=== PATIENT | male | born 1980 | race Two or more races ===

== ENCOUNTER 2024-09-18 21:42 | Emergency (ER) | payer MEDICAID, SELFPAY ==
[2024-09-18 21:43] VITALS: BMI 25.0
--- NOTE | 2024-09-18 21:49 | EKG_ITS ---
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
--- NOTE | 2024-09-18 22:04 | EDNOTE_ITS ---
ED Chest Pain RME/HPI General Chief Complaint: Chest Pain Stated Complaint: CHEST PAIN, EVERYTHING HURTS Time Seen by Provider: 09/18/24 22:05 Arrival date/time: 09/18/24 21:42 RME / HPI RME / HPI narrative: This section includes all my notes and documentations, including HPI, PE, and ED course. Michael Marroquin MD HPI: 44yo male with a friend presents to the ED for a chief complaint of chest pain. Patient's friend states the patient started complaining of chest pain for several days, reporting the pain now radiates to his back and neck. Patient denies any nausea, vomiting, fever, chills or any other associated symptoms. Denies any falls or injuries. Drank a lot of alcohol in the past few days. No other complaints reported. ROS: All negative except as documented in HPI. Physical Exam: General: Alert and oriented. Appears intoxicated. Eyes: Conjunctivae and lids clear. ENT: No nasal congestion. Neck: Supple. Heart: RRR. Lungs: No respiratory distress. Good air movement. No rhonchi, wheezing, rales. Chest: Severe tenderness with palpation and movement of the entire chest anteriorly and laterally bilaterally, difficult to localize. Abdomen: Soft and nontender. Normal bowel sounds. No distension. No rebound or guarding. Back: No CVA tenderness. Skin: Warm and dry. Neuro: Alert and oriented X 3. I reviewed all diagnostic test results. My interpretation of the EKG is sinus rhythm with nonspecific ST-T changes. My review of the CT chest abdomen pelvis report is unremarkable. Blood tests are unremarkable except for Blood Alcohol of 278. At this point, diagnoses include chest wall pain and alcohol intoxication. Treatment here included Ativan. Significant improvement noted. Recommended supportive care and more outpatient cardiac workup. Based on my best medical judgment, made decision no further evaluation or treatment indicated at this time. Patient understands and agrees to the discharge instructions customized and printed, see below. Discharge instructions from Dr. Marroquin: 1. After extensive evaluation, there is no life-threatening condition. Such as heart attack or pneumothorax (collapsed lung). No serious injury, such as broken bone or internal organ injury. 2. Your pain is originating from the chest wall and not from an internal organ. The chest wall has many joints and muscles between the ribs, so sprains and strains are common. 3. Apply ice or heat if helpful. Tylenol/ibuprofen as needed. 4. See a private doctor on 09/20/2024 for recheck. To make sure there is no serious underlying heart condition, ask to help you get more tests for your heart that cannot be done here in the ER. Such as Holter Monitor (cardiac monitoring at home from a day to even a month), heart stress test (on treadmill or with medication), echocardiogram (imaging of your heart structures), heart catherization (checking for blockages in your heart arteries), and a referral to see a Cardiograph Operator. Ask to review all test results and official radiology reports, to make sure you receive all necessary follow-ups and monitoring. Ask for help to quit alcohol. 5. Seek immediate medical care with worsening or with any concerns. Michael Marroquin MD Related Data Previous Rx's ?Medication ?Instructions ?Recorded etodolac 400 mg tablet 400 mg PO BID PRN pain #30 t abs 10/07/20 methocarbamol 750 mg tablet 750 mg PO TID PRN pain #30 tabs 10/07/20 meloxicam 7.5 mg tablet 7.5 mg PO QDAY #10 tabs 09/26 11/15 doxycycline hyclate 100 mg capsule 100 mg PO BID #14 c aps 06/28/22 Allergies Allergy/AdvReac Type Severity Reaction Status Date / Time No Known Allergies Allergy Unknown Uncoded 06/28/22 20:44 Review of Systems Review of Systems Systems Reviewed: All systems reviewed, normal except as documented Past Medical History Past Medical History CARDIAC: Negative Cardiac Disorders or Congestive Heart Failure RESPIRATORY: Negative Chronic Obstructive Pulmonary Disease (COPD) or Asthma GENITOURINARY: Negative Renal Disease ENDOCRINE: Negative Diabetes Mellitus Type 1 or Diabetes Mellitus Type 2 HEMATOLOGIC: Negative Sickle Cell Disease Social History SMOKING STATUS: Current every day smoker SUBSTANCE USE: does not use ED Exam Narrative Physical exam: As noted in HPI. Course Quality Measures none Orders Category Date Time Status EKG (ED ONLY) *Do not use* NOW Care 09/18/24 21:[address] chest abdomen pelvis wo Stat Exams 09/18/24 22:05 Completed EKG (ED Only) Stat Exams 09/18/24 21:49 Draft Alcohol, Blood Medical Stat Lab 09/18/24 22:37 Completed Amylase Stat Lab 09/18/24 22:37 Completed Bilirubin,Direct Stat Lab 09/18/24 22:37 Completed CBC Stat Lab 09/18/24 22:37 Completed CK [Creatine Kinase] Stat Lab 09/18/24 22:37 Completed CMP [Comprehensive Metabolic Panel] Stat Lab 09/18/24 22:37 Completed Drug Screen,Urine Stat Lab 09/18/24 22:06 Ordered Free T4 (Free Thyroxine) Stat Lab 09/18/24 22:37 Completed Lipase Stat Lab 09/18/24 22:37 Completed Magnesium Stat Lab 09/18/24 22:37 Completed PT [Prothrombin Time with INR] Stat Lab 09/18/24 22:37 Completed PTT [Partial Thromboplastin Time] Stat Lab 09/18/24 22:37 Completed TSH [Thyroid Stimulating Hormone] Stat Lab 09/18/24 22:37 Completed Troponin I Stat Lab 09/18/24 22:37 Completed UA, C/S IF [Urinalysis, C/S if Indicated] Stat Lab 09/18/24 22:07 Ordered LORazepam [Ativan] Med 09/18/24 22:06 Discontinued 2 mg PO X1 ONE Vital Signs Vital signs: Vital Signs Temperature 98.6 F 09/18/24 22:06 Pulse Rate 113 H 09/18/24 22:06 Respiratory Rate 23 H 09/18/24 22:06 Blood Pressure 117/86 H 09/18/24 22:06 Pulse Oximetry (%) 100 09/18/24 22:06 Oxygen Delivery Method Room Air 09/18/24 22:06 Chest Pain MDM Narrative MDM Narrative:: Scribe Attestation: 09/18/24 Chyna Hanna am scribing for and in the presence of Dr. Marroquin. Patient data External records reviewed:: [facility] previous records (Per chart review, patient was seen here on 10/04/23 for acute alcoholic hepatitis.) Clinical information provided by:: patient and friend Social determinants that could affect healthcare access:: alcohol use (drinks 6pack+ daily) Patient has the following chronic illnesses:: none How is presenting disease/condition affected by chronic disease/condition?: no chronic disease Evaluation data The following diagnostics were reviewed and interpreted by me:: lab results, radiology exam(s) and EKG tracing(s) (My interpretation of the EKG is: Sinus rhythm (88 bpm) with nonspecific ST-T changes. Michael Marroquin MD) Lab and/or radiology exams considered but not ordered:: none Interpretation Summary: Psychogenic chest pain echogenic chest pain I reviewed all diagnostic test results. My interpretation of the EKG is sinus rhythm with nonspecific ST-T changes. My review of the CT chest abdomen pelvis report is unremarkable. Blood tests are unremarkable except for Blood Alcohol of 278. Medications / Prescriptions Medications or Prescriptions considered but not ordered:: none Medication administrations:: Medication Administration History Discontinued Medications Lorazepam (Lorazepam 0.5 Mg Tablet) 2 mg PO X1 ONE Stop: 09/18/24 22:07 Last Admin: 09/19/24 00:07 Dose: 2 mg Documented By: KF Ativan Consultations Consultation(s) initiated? (list below): No Diagnosis Chest Pain Differential Diagnosis: fracture of rib, pneumothorax, stable angina, unstable angina pectoris, atypical chest pain, st elevation myocardial infarction, costochondritis and other (psychogenic chest pain) Most likely diagnosis given after review of the tests above:: Chest wall pain, Alcohol intoxication Admission Indicated Admission indicated?: not indicated Explain why admission is indicated or not indicated:: With significant improvement, there was no indication for admission. Admission Request Was there a request for admission?: No Disposition Plan Disposition Plan: Discharge Discharge Attestation Discharge Attestation: The patient and all family members were given an opportunity to ask questions and understood the discharge instructions. Discharge instructions specifically effects, indications for sooner follow up or return to the emergency department, and the expected course of current diagnosis. Patient condition: Stable Discharge Plan Plan Patient Disposition: HOME (Self Care) Prescriptions/Referrals Prescriptions/Med Rec: No Action etodolac 400 mg tablet 400 mg PO BID PRN (Reason: pain) Qty: 30 0RF methocarbamol 750 mg tablet 750 mg PO TID PRN (Reason: pain) Qty: 30 0RF meloxicam 7.5 mg tablet 7.5 mg PO QDAY Qty: 10 0RF doxycycline hyclate 100 mg capsule 100 mg PO BID Qty: 14 0RF Referrals: Tracy Medrano DPM [Primary Care Provider] - In 1 week Problem List Clinical Impression: Chest wall pain, Alcohol intoxication Patient/Caregiver Discharge Instructions Discharge Activity: activity as tolerated Education Materials: ED Chest Wall Pain, Costochondritis, ED Alcohol Intoxication Additional Instructions: Discharge instructions from Dr. Marroquin: 1. After extensive evaluation, there is no life-threatening condition.? Such as heart attack or pneumothorax (collapsed lung). No serious injury, such as broken bone or internal organ injury. 2. Your pain is originating from the chest wall and not from an internal organ.? The chest wall has many joints and muscles between the ribs, so sprains and strains are common.?? 3. Apply ice or heat if helpful.? Tylenol/ibuprofen as needed. 4. See a private doctor on 09/20/2024 for recheck. To make sure there is no serious underlying heart condition, ask to help you get more tests for your heart that cannot be done here in the ER.? Such as Holter Monitor (cardiac monitoring at home from a day to even a month), heart stress test (on treadmill or with medication), echocardiogram (imaging of your heart structures), heart catherization (checking for blockages in your heart arteries), and a referral to see a Cardiograph Operator.? Ask to review all test results and official radiology reports, to make sure you receive all necessary follow-ups and monitoring. Ask for help to quit alcohol. 5. Seek immediate medical care with worsening or with any concerns.?? Print Language: Azeri Stand Alone Forms: [facility] Award Info., Patient Portal Info Letter
--- NOTE | 2024-09-18 22:05 | XR_ITS ---
Examination: CT chest, without intravenous contrast. CT abdomen, without intravenous contrast. CT pelvis, without intravenous contrast. 2-D sagittal and coronal reconstructions. 3-D reconstructions. Date and time of exam:September 18, 2024 at 1120 hours INDICATIONS: Onset chest and abdominal pain beginning 2 hours ago CTDI vol (mgy) 6.65 DLP (MGycm)460 Technique: Multiple CT images, 3.0 mm slice thickness, obtained chest, abdomen, pelvis, with the high-resolution 64 slice scanner.. Sagittal and coronal 2-D reconstructions are obtained. 3-D reconstructions Low dose protocols were performed. One or more of the following dose reduction techniques were used; automated exposure control, adjustment of the mA and/or KV according to patient size, use of iterative reconstruction technique. Findings: No thoracic aortic aneurysm dilatation No paratracheal tracheobronchial or bronchopulmonary adenopathy No pneumonia, pulmonary edema or pleural disease No visualized liver splenic lesion No gallstones No pancreatic or adrenal mass No renal or ureteral calculi, no hydronephrosis Aorta normal size Normal appendix No bowel obstruction or diverticulitis Distended urinary bladder Transverse prostate dimension 5.1 cm Moderate disc narrowing posteriorly at L5-S1 Osseous structures intact IMPRESSION: No acute process in the chest abdomen or pelvis
[2024-09-18 22:06] VITALS: BP 117/86; PULSE 113; RESP 23; TEMP 37; O2SAT 100
[2024-09-18 22:51] LABS: Basophils % (Auto) 1 % (0-2.5); Eosinophils # (Auto) 0.2 Thou/mm3 (0.0-0.5); Eosinophils % (Auto) 3 % (0-10); Hematocrit 40.7 % (41.0-53.0); Hemoglobin 14.7 g/dL (13.5-16.0); Immature Granulocytes % (Auto) 0 % (0-0); Immature Granulocytes Auto 0.02 Thou/mm3 (0.00-0.00); Lymphocytes # (Auto) 2.9 Thou/mm3 (1.0-4.8); Lymphocytes % (Auto) 43 % (10-50); Mean Corpuscular HGB Conc 36.1 g/dl (31.0-37.0); Mean Corpuscular Hemoglobin 30.6 pg (25.0-35.0); Mean Corpuscular Volume 85 fL (80-100); Monocytes # (Auto) 0.7 Thou/mm3 (0.0-0.8); Monocytes % (Auto) 10 % (0-12); Neutrophils # (Auto) 2.8 Thou/mm3 (1.8-7.7); Neutrophils % (Auto) 43 % (37-80); Nucleated Red Blood Cell % 0 /100 WBC (0); Platelet Count 218 Thou/mm3 (140-440); RDW Standard Deviation 38.3 fL (35.1-43.9); White Blood Count 6.6 Thou/mm3 (3.8-10.6)
[2024-09-18 23:18] LABS: INR 0.9 (0.9-1.3); Prothrombin Time 10.3 Seconds (9.0-12.2)
[2024-09-19 00:07] LABS: Alanine Aminotransferase 37 U/L (10-49); Albumin, Serum 4.6 gm/dL (3.5-5.0); Albumin/Globulin Ratio 1.7 (1.2-2.2); Alkaline Phosphatase 52 U/L (46-116); Anion Gap 11 (7-16); Aspartate Amino Transferase 39 U/L (0-34); BUN/Creatinine Ratio 9 Ratio (12-20); Bilirubin,Direct < 0.1 mg/dL (0.0-0.3); Bilirubin,Total 0.3 mg/dL (0.3-1.2); Blood Urea Nitrogen 7 mg/dL (9-23); Calcium 9.1 mg/dL (8.3-10.6); Calcium (Corrected) 9.1 mg/dL (8.5-10.1); Carbon Dioxide 23.8 mMol/L (20.0-31.0); Chloride 110 mMol/L (98-107); Creatine Kinase 206 U/L (34-171); Creatinine (Component) 0.8 mg/dL (0.6-1.3); Estimated Creatinine Clearance 102.5 mL/min (>60); Free T4 (Free Thyroxine) 1.21 ng/dL (0.89-1.76); Globulin 2.7 gm/dL (2.3-3.5); Glucose 107 mg/dL (74-106); Lipase 48 U/L (12-53); Magnesium 2.3 mg/dL (1.6-2.6); Osmolality,Calculated 286 (275-295); Potassium 3.4 mMol/L (3.4-5.1); Sodium 145 mMol/L (136-145); Thyroid Stimulating Hormone 2.32 uIU/mL (0.55-4.78); Total Protein 7.3 gm/dL (5.7-8.2); Troponin I < 0.002 ng/mL (0.0-0.045); eGFR > 60 See Note
[2024-09-19] MEDS: LORazepam 0.5 MG TABLET 2 MG PO (00:07)
[2024-09-19 00:25] LABS: Amylase 45 U/L (30-118)
== END 2024-09-19 00:36 | disposition home or self-care (01) ==
PROVIDERS: Emergency Provider Emergency Medicine; PCP Podiatrist Foot & Ankle Surgery
DX: R07.89 Other chest pain (principal); F10.129 Alcohol abuse with intoxication, unspecified
CPT/HCPCS: 36415; 71250; 74176; 80053; 80307; 80320; 81001; 82150; 82248; 82550; 83690; 83735; 84439; 84443; 84484; 85025; 85610; 85730; 93005; 99284; A9270; G0480